=== PATIENT | male | born 1980 | race Caucasian/White ===

== ENCOUNTER 2019-11-11 15:54 | Emergency (ER) | payer OTHER ==
[~2019-11-11] VITALS: Ht 182.9 cm; Wt 72.6 kg
[2019-11-11] MEDS ORDERED: KEFLEX500 M1 PO (17:18)
[2019-11-11] MEDS ORDERED: NORCO 5-325 TA1 EAC2 PO (17:19)
[2019-11-11 17:29] VITALS: BP 126/73
== END 2019-11-11 17:30 | disposition home or self-care (01) ==
LOC: M.ERS 15:54
DX: S81.011A Laceration without foreign body, right knee, initial encounter (principal); F12.90 Cannabis use, unspecified, uncomplicated; W29.3XXA Contact with powered garden and outdoor hand tools and machinery, initial encounter; Y93.89 Activity, other specified; Y92.89 Other specified places as the place of occurrence of the external cause; Y99.9 Unspecified external cause status